=== PATIENT | male | born 1955 | race Caucasian/White ===

== ENCOUNTER → 2016-07-02 | Day surgery (SDC) | payer OTHER ==
[~2016-07-02] VITALS: Ht 180.3 cm; Wt 88.9 kg
[~2016-07-02] MED LIST: CEPHALEXIN500 M3 PO
--- NOTE | 2016-07-02 09:27 | Operative Report ---
Operative/Inv Procedure Report Surgery Date: 07/02/16 Name of Procedure: Incarcerated umbilical hernia repair with mesh Pre-Operative Diagnosis: Incarcerated umbilical hernia Post-Operative Diagnosis: Same Estimated Blood Loss: scant Surgeon/Chucking And Sawing Machine Operator: LEMUEL NJ,VERA Summers/Devaughn GUERRA Anesthesia: laryngeal mask airway Implants: 6.4 cm ventral X mesh Operative/Procedure Note Note: After consent is brought to the operating room and laid supine. Gen. anesthesia was obtained and his abdomen was prepped and draped. The periumbilical region was infiltrated cocktail local anesthesia. A curvilinear inferiorly based incision made sharply. We dissected the subcutaneous tissues tissues with cautery and transected the umbilical stalk with cautery. We were then able to expose the defect. The fascial edges were trimmed down to healthy tissue. There is a lot of attenuated stalk that was removed. I was then able to reduce the contents. The resultant defect was 2.5 cm in greatest dimension. I elected to repaired with a piece of preperitoneal mesh. Preperitoneal planes were created circumferentially in a blunt fashion. Hemostasis which achieved with direct pressure. The mesh was then rolled up and placed in the cavity. It was unraveled below the defect. Once were happy the placement of mesh the fascia was closed over the mesh with interrupted 0 Maxon sutures, while incorporating the anterior portion of mesh to keep it centered. The tails were trimmed and discarded. The umbilical stalk was then re-created with 3-0 Vicryl. The incision closed with 4-0 Vicryl. Steri-Strips and sterile dressing applied. Sponge and needle counts are correct CC: MIN NJ,SYDNEY Werner
== END ==
LOC: STS 04:03
DX: K42.0 Umbilical hernia with obstruction, without gangrene (principal); B19.20 Unspecified viral hepatitis C without hepatic coma; K21.9 Gastro-esophageal reflux disease without esophagitis
CPT/HCPCS: J0131; J0690; J2250

== ENCOUNTER 2016-07-05 20:35 | Emergency (ER) | payer OTHER ==
[~2016-07-05] VITALS: Ht 180.3 cm; Wt 88.9 kg
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
[2016-07-06 00:23] LABS: ABSOLUTE BASOPHIL COUNT 0 /CUMM (0.0-0.2); ABSOLUTE EOSINOPHIL COUNT 0.5 /CUMM (0.0-0.7); ABSOLUTE GRANULOCYTE CT 5.5 /CUMM (1.4-6.5); ABSOLUTE LYMPH COUNT 2.1 /CUMM (1.2-3.4); ABSOLUTE MONOCYTE COUNT 0.7 /CUMM (0.10-0.60); BASOPHIL % 0.4 % (0.0-2.0); EOSINOPHIL % 6.1 % (0-5); GRANULOCYTE % 61.7 % (42.2-75.2); HEMATOCRIT 49.4 % (42-52); MEAN CORPUSCULAR HGB 30.4 PG (27.0-31.0); MEAN CORPUSCULAR HGB CONC 34.5 G/DL (33.0-37.0); MEAN CORPUSCULAR VOLUME 88.2 FL (80.0-94.0); MEAN PLATELET VOLUME 8.6 FL (7.4-10.4); PLATELET COUNT 163 /CUMM (130-400); RBC DISTRIBUTION WIDTH 13.4 % (11.5-14.5); RED BLOOD CELL CT 5.61 /CUMM (4.70-6.10)
[2016-07-06 03:07] VITALS: BP 153/84
--- NOTE | 2016-07-06 03:13 | CT SCAN REPORT ---
EXAMINATION: CT ABDOMEN AND PELVIS WITH CONTRAST CLINICAL INFORMATION: Postop infection from hernia COMPARISON: None TECHNIQUE: Multidetector volumetric imaging was performed of the abdomen and pelvis before and after the IV administration of 95 mL of Optiray 320 intravenous contrast. Sagittal and coronal reformatted images were obtained on the technologist's workstation. DLP: 591.25 mGy-cm FINDINGS: LUNG BASES: There is mild dependent atelectasis at the lung bases. LIVER, GALLBLADDER, AND BILIARY TREE: The liver is normal in size, shape, and attenuation. There is a mildly hypoattenuating lesion in the posterior right hepatic lobe measuring 3.3 x 2.1 cm on image 19/118, with ill-defined margins. No biliary ductal dilatation is present. The gallbladder is unremarkable with no evidence of radiopaque gallstones, gallbladder wall thickening, or obvious pericholecystic inflammatory changes. PANCREAS: Unremarkable. SPLEEN: Unremarkable. ADRENAL GLANDS: Unremarkable. KIDNEYS AND URETERS: The kidneys are normal in size, shape, and attenuation. There is a punctate left upper pole renal calculus. No hydronephrosis, hydroureter, or obstructing calculi seen. No perinephric stranding. BLADDER: Unremarkable. GASTROINTESTINAL TRACT: Colonic diverticulosis is noted without convincing evidence for diverticulitis.. The small and large bowel are otherwise unremarkable without evidence of obstruction or pericolonic inflammatory change. No free fluid is seen. A couple small foci of free air are noted in the anterior abdomen, presumably postoperative in nature. ABDOMINAL WALL: Periumbilical stranding is presumably postoperative in nature. LYMPH NODES: Scattered mesenteric and retroperitoneal subcentimeter lymph nodes are present, without significant enlargement by size criteria. VASCULAR: There is atherosclerotic calcification along the aorta. PELVIC VISCERA: Unremarkable. OSSEOUS STRUCTURES: Degenerative changes are noted in the spine. IMPRESSION: 1. Mildly hypoattenuating lesion in the right hepatic lobe measuring approximately 3.3 x 2.1 cm. This is concerning for a mass or potentially a hepatic abscess in the setting of infection. Further assessment with pre and postcontrast MRI is recommended. 2. Trace pneumoperitoneum, presumably postsurgical given the clinical history. 3. Colonic diverticulosis.
[2016-07-06] MEDS ORDERED: CEPHALEXIN500 M3 PO (04:33)
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
== END 2016-07-06 04:58 ==
LOC: ERH 20:35
PROVIDERS: Physician Assistant Medical
DX: T81.4XXA Infection following a procedure, initial encounter (principal); L03.311 Cellulitis of abdominal wall
CPT/HCPCS: 74177; 81001; 87040; J0690

== ENCOUNTER → 2017-07-21 | Day surgery (SDC) | payer OTHER, MEDICARE ==
[~2017-07-21] VITALS: Ht 177.8 cm; Wt 87.5 kg
[2017-07-21 13:37] LABS: ABSOLUTE BASOPHIL COUNT 0 /CUMM (0.0-0.2); ABSOLUTE EOSINOPHIL COUNT 0.4 /CUMM (0.0-0.7); ABSOLUTE GRANULOCYTE CT 3.9 /CUMM (1.4-6.5); ABSOLUTE LYMPH COUNT 1.9 /CUMM (1.2-3.4); ABSOLUTE MONOCYTE COUNT 0.5 /CUMM (0.10-0.60); BASOPHIL % 0.3 % (0.0-2.0); EOSINOPHIL % 6.4 % (0-5); GRANULOCYTE % 57.7 % (42.2-75.2); HEMATOCRIT 44.9 % (42-52); MEAN CORPUSCULAR HGB 30.5 PG (27.0-31.0); MEAN CORPUSCULAR HGB CONC 35.1 G/DL (33.0-37.0); MEAN PLATELET VOLUME 8.6 FL (7.4-10.4); PLATELET COUNT 159 /CUMM (130-400); RED BLOOD CELL CT 5.17 /CUMM (4.70-6.10); WHITE BLOOD CELL COUNT 6.7 /CUMM (4.8-10.8)
[2017-07-21 13:46] LABS: PT 12.2 SEC (9.4-12.5); PTT 32 SEC (25-37)
--- NOTE | 2017-07-21 15:28 | Operative Report ---
Operative/Inv Procedure Report Surgery Date: 07/21/17 Name of Procedure: left renal ESWL: fluoroscopy Pre-Operative Diagnosis: left renal stone and colic Post-Operative Diagnosis: same Estimated Blood Loss: none Surgeon/Financial Planning Analyst: Evans Cárdenas MD Anesthesia: moderate sedation Specimens: none Complications: none Condition: improved Operative/Procedure Note Note: The patient was taken to the operating room and placed on the ESWL table in supine position. With the patient awake, timeout was performed to confirm correct identity, procedure, laterality, anesthesia, and other pertinent clinton- operative information. After adequate anesthesia, the patient was positioned so that the patient's left flank was positioned over the table cut-out, overlying the dome of the treatment head. Once the patient was adequately sedated, fluoroscopy, as well as Renal ultrasound was used to locate the LEFT renal stone. Renal US confirmed the presence of the stone which measured it to be approximately 5 mm upper pole stone. The stone was visible with fluoroscopy. Renal US revealed, no hydronephrosis, and no solid tumor, and presence of the stone. The position of the stone was optimized by using fluoroscopy in AP and oblique views;placing the stone within the ESWL c-arm crosshairs. Once the stone's position was optimized , the LEFT renal E.S.W.L. was initiated at low energy level. After noting the patient's tolerance to the shockwaves, the intensitiy was ramped up to maximum level. At the end of the procedure, the left renal stone had dissintegrated. Of note, a total of 2500 shockwaves were delivered to the stone. The patient tolerated the ESWL procedures well, was awakened, then taken to recovery in satisfactory condition via stretcher. The patient was dischared home with pain medications, diet orders, and intructions to catch fragments by straining the urine. The patient to to have follow-up renal ultrasound and KUB in 1 to 2 weeks, prior to follow-up visit in my office. He will then proceed with metabolic stone work-up. Discharge Disposition: Same Day Admissions CC: Evans Cárdenas MD
== END ==
LOC: STS 07:00
PROVIDERS: Urology
DX: N20.0 Calculus of kidney (principal); B19.20 Unspecified viral hepatitis C without hepatic coma; K74.69 Other cirrhosis of liver
CPT/HCPCS: 36415; 93005; 93010; J2250

== ENCOUNTER 2017-12-01 16:21 | Emergency (ER) | payer OTHER, MEDICARE ==
[~2017-12-01] VITALS: Ht 180.3 cm; Wt 87.5 kg
[2017-12-01 16:28] VITALS: BP 151/85
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
[2017-12-01] MEDS ORDERED: VALIUM5 M2 PO (17:22)
== END 2017-12-01 17:44 ==
LOC: ERH 16:21
DX: M54.2 Cervicalgia (principal)